=== PATIENT | female | born 1980 | race Caucasian/White ===

== ENCOUNTER → 2020-06-21 00:27 | Outpatient (CLI) | payer OTHER, SELFPAY ==
[2020-06-21 20:23] LABS: SARS-CoV-2 RNA PCR Negative
== END ==
PROVIDERS: PCP Family Medicine; Visit Provider Internal Medicine Gastroenterology
DX: Z01.812 Encounter for preprocedural laboratory examination (principal); Z20.822 Contact with and (suspected) exposure to COVID-19
CPT/HCPCS: C9803; U0003; U0005

== ENCOUNTER 2020-06-25 00:31 | Day surgery (SDC) | payer OTHER, SELFPAY ==
[2020-06-12 14:42] VITALS: BMI 27.7
[2020-06-25 06:21] VITALS: BP 115/60; PULSE 75; RESP 18; TEMP 36.2; O2SAT 100
[2020-06-25] MEDS: LACTATED RINGERS 1,000 ML 150 ML IV CONT (06:32)
--- NOTE | 2020-06-25 07:11 | WPDANESEPPF ---
Anes - Initial Pre Proc Eval Procedure: Operation Date: 06/25/20 07:30 Proposed Procedures p Colonoscopy - John Roberts MD Date/Time: 06/25/20 07:11 Surgeon: John Roberts MD Pre Op Diagnosis: Melena Patient Data Age: 40 Gender: F Height: 5 ft 6 in Weight: 76.8 kg Last Vital Signs Temp 97.1 F L 06/25/20 06:21 Pulse 75 06/25/20 06:21 Resp 18 06/25/20 06:21 BP 115/60 06/25/20 06:21 Pulse Ox 100 06/25/20 06:21 Allergies Allergy/AdvReac Type Severity Reaction Status Date / Time No Known Allergies Allergy Unverified 06/25/20 06:17 Home Medications Medication Instructions Recorded Confirmed Type cholecalciferol (vitamin D3) 50 50 mcg PO DAILY 08/30/19 06/12/20 History mcg (2,000 unit) capsule loratadine 10 mg tablet 10 mg PO DAILY 08/30/19 06/12/20 History sodium,potassium,mag sulfates 17.5 See Rx Instructions PO .COMPLEX 05/16/20 Rx gram-3.13 gram-1.6 gram oral soln #354 ml ibuprofen 200 mg PO Q6H PRN 06/12/20 06/12/20 History Patient hx anesthesia problems: none Family hx anesthesia problems: none PMFSH Past Medical History Medical History (Updated 05/09/20 @ 16:25 by Sonia Scruggs NP) Blood in stool Hyperlipidemia Diet controlled Irritable bowel syndrome with constipation Vitamin D deficiency Family History Family History (Updated 11/22/13 @ 07:13 by DOCTOR UNKNOWN) Father Asthma Grandparent Family history of type 2 diabetes mellitus Social History Social History Smoking status: Never smoker Alcohol intake: current Substance use: never Substance use type: does not use Living arrangements: with family Spiritual care concerns: No Anes - Eval Final PreProcedure Day of Procedure 06/25/20 07:11 Patient weight: overweight Heart: regular rate and rhythm Lungs: clear to auscultation Airway: Mallampati scale class II Neurological: alert and oriented Last oral intake: >/= 8 hours ASA classification: II Emergent: no Anesthetic plan: proceed Anesthesia type and monitoring: general GIVS and standard monitoring Informed Consent: The patient's anesthetic plan and its attendant risks and benefits were discussed with the patient/family/POA. Questions were solicited and answers provided to the satisfaction of the patient/family/POA.
--- NOTE | 2020-06-25 07:32 | PM.HPGS ---
History of Present Illness History of Present Illness Consent: Risks, benefits, and alternatives have been discussed and questions answered. Patient agrees to proceed with procedure. Chief complaint: Melena Narrative: Jeannette Steele is a 40 year old female with intermittent rectal bleeding Review of Systems Constitutional: Constitutional: Denies headache(s) and Denies weakness Eyes: Eyes: Denies blurry vision ENT: Reports Normal hearing present, Denies headache(s) and Denies neck pain Cardiovascular: Cardiovascular: Denies chest pain and Denies dyspnea Respiratory: Respiratory: Denies dyspnea Gastrointestinal: Gastrointestinal: Reports no additional gastrointestinal complaints Genitourinary: Genitourinary: Denies dysuria Musculoskeletal: Musculoskeletal: Denies neck pain Integumentary/Breasts: Skin/Breast: Denies dry skin Neurologic: Reports Normal hearing present, Denies headache(s) and Denies weakness Psychiatric: Psychiatric: Denies anxiety Endocrine: Endocrine: Denies change in body appearance Hematologic/Lymphatic: Hematologic/Lymphatic: Denies easy bleeding Allergic/Immunologic: Allergic/Immunologic: Denies urticaria PMFSH Past Medical History Medical History (Updated 05/09/20 @ 16:25 by Sonia Scruggs NP) Blood in stool Hyperlipidemia Diet controlled Irritable bowel syndrome with constipation Vitamin D deficiency Family History Family History (Updated 11/22/13 @ 07:13 by DOCTOR UNKNOWN) Father Asthma Grandparent Family history of type 2 diabetes mellitus Social History Social History Smoking status: Never smoker Alcohol intake: current Substance use: never Substance use type: does not use Living arrangements: with family Spiritual care concerns: No Meds Home Medications and Allergies Home Medications Medication Instructions Recorded Confirmed Type cholecalciferol (vitamin D3) 50 50 mcg PO DAILY 08/30/19 06/12/20 History mcg (2,000 unit) capsule loratadine 10 mg tablet 10 mg PO DAILY 08/30/19 06/12/20 History sodium,potassium,mag sulfates 17.5 See Rx Instructions PO .COMPLEX 05/16/20 Rx gram-3.13 gram-1.6 gram oral soln #354 ml ibuprofen 200 mg PO Q6H PRN 06/12/20 06/12/20 History Allergies Allergy/AdvReac Type Severity Reaction Status Date / Time No Known Allergies Allergy Unverified 06/25/20 06:17 Vital Signs Vital Signs - 24 hr 06/25/20 06:21 Temperature 97.1 F L Pulse Rate 75 Respiratory Rate 18 Blood Pressure 115/60 Pulse Oximetry 100 Exam Const: General: comfortable and no acute distress HENMT: General nose exam: Normal nares present Eyes: General: appearance normal, both eyes and all related structures Neck: Neck: no JVD Resp: Auscultation: clear to auscultation bilaterally Cardio: Rate: regular rate Rhythm: regular rhythm GI: Inspection: non-distended GI Palp: Yes Soft to palpation Skin: General skin exam: normal color Neuro: General: gait normal Speech: normal speech Extrem: General: normal to inspection Psych: Mental Status: mental status grossly normal Assessment and Plan Assessment and plan (1) Blood in stool: Code(s): K92.1 - Melena Status: Acute Assessment and Plan: proceed with colonoscopy
[2020-06-25 07:51] VITALS: BP 112/56; PULSE 69; RESP 16; O2SAT 100
[2020-06-25 08:01] VITALS: BP 108/71; PULSE 74; RESP 16; O2SAT 100
[2020-06-25 08:11] VITALS: BP 109/68; PULSE 69; RESP 18; O2SAT 100
== END 2020-06-25 08:32 | disposition home or self-care (01) ==
PROVIDERS: PCP Family Medicine; Visit Provider Internal Medicine Gastroenterology
PROC: 0DJD8ZZ Inspection of Lower Intestinal Tract, Via Natural or Artificial Opening Endoscopic (ICD-10-PCS; CPT 45378; principal; 2020-06-25 07:30)
DX: K92.1 Melena (principal); K64.8 Other hemorrhoids; E78.5 Hyperlipidemia, unspecified; K58.9 Irritable bowel syndrome, unspecified; E55.9 Vitamin D deficiency, unspecified
CPT/HCPCS: 45378; C9803; J2001; J2704; J7120; U0003; U0005

== ENCOUNTER 2021-01-07 10:01 | Outpatient (CLI) | payer OTHER, SELFPAY ==
--- NOTE | ~2021-01-07 | MM_ITS ---
EXAMINATION: MM screening juan BI w ruby HISTORY: Screening TECHNIQUE: Craniocaudal and mediolateral oblique 3-D tomosynthesis images were obtained and synthetic 2-D images were generated. CAD analysis was submitted and interpreted. COMPARISON: No prior mammogram is available for comparison at this institution. BREAST PARENCHYMAL COMPOSITION: There are scattered areas of fibroglandular density. FINDINGS: There are no suspicious masses, calcifications or architectural distortion in the right tiffany ast to suggest malignancy. There is asymmetric fibroglandular tissue in the left breast primarily jemma tered in the subareolar location. There are scattered calcifications. IMPRESSION: 1. Left breast asymmetries and calcifications. 2. Additional mammographic views and possible breast ultrasound are recommended. BI-RADS Category 0: Incomplete: Needs additional imaging evaluation. Reviewed, dictated and finalized at location A. IMPRESSION: 1. Left breast asymmetries and calcifications. 2. Additional mammographic views and possible breast ultrasound are recommended . BI-RADS Category 0: Incomplete: Needs additional imaging evaluation.
== END 2021-01-07 10:02 | disposition home or self-care (01) ==
LOC: ANHIMG 10:04
PROVIDERS: PCP Family Medicine; Visit Provider Nurse Practitioner
DX: Z12.31 Encounter for screening mammogram for malignant neoplasm of breast (principal); R92.8 Other abnormal and inconclusive findings on diagnostic imaging of breast
CPT/HCPCS: 77063; 77067

== ENCOUNTER 2021-01-30 13:04 | Outpatient (CLI) | payer OTHER, SELFPAY ==
--- NOTE | ~2021-01-30 | MMUS_ITS ---
EXAMINATION: MM diagnostic juan LT w ruby, US breast LT limited HISTORY: Follow-up left breast asymmetry and calcifications TECHNIQUE: Additional 3-D tomosynthesis images of the left breast were performed and synthetic 2-D im ages were generated. CAD analysis was submitted and interpreted. High resolution left breast ultrasou nd was performed. COMPARISON: 01/07/2021 BREAST PARENCHYMAL COMPOSITION: Breast composed of scattered areas of fibroglandular density FINDINGS: MAMMOGRAPHIC FINDINGS: . There are scattered punctate benign-appearing calcifications in the subareolar location. There are no discrete masses or architectural distortion. ULTRASOUND: Limited left breast ultrasound: Normal heterogeneous echotexture without focal solid or cystic mass. IMPRESSION: 1. No evidence for malignancy in the left breast. 2. Routine yearly screening mammogram and regular clinical breast examination are recommended. BI-RADS Category 2: Benign finding(s). Reviewed, dictated and finalized at location A. IMPRESSION: 1. No evidence for malignancy in the left breast. 2. Routine yearly screening mammogram and regular clinical breast examination a re recommended. BI-RADS Category 2: Benign finding(s).
== END 2021-01-30 13:05 | disposition home or self-care (01) ==
LOC: ANHIMG 13:05
PROVIDERS: PCP Family Medicine; Visit Provider Nurse Practitioner
DX: R92.8 Other abnormal and inconclusive findings on diagnostic imaging of breast (principal)
CPT/HCPCS: 76642; 77061; 77065; G0279

== ENCOUNTER 2021-04-27 17:10 | Emergency (ER) | payer OTHER, SELFPAY ==
[2021-04-27 17:17] VITALS: BP 124/50; PULSE 76; RESP 16; TEMP 36.6; O2SAT 100
== END 2021-04-27 17:17 | disposition left against medical advice (07) ==
PROVIDERS: Emergency Provider Nurse Practitioner; PCP Nurse Practitioner Family
DX: Z53.21 Procedure and treatment not carried out due to patient leaving prior to being seen by health care provider (principal)
CPT/HCPCS: 99199

== ENCOUNTER → 2021-04-27 17:23 | Outpatient (CLI) | payer OTHER, SELFPAY ==
--- NOTE | ~2021-04-27 | XR_ITS ---
EXAMINATION: XR lumbar spine 2-3V EXAM DATE: 04/27/2021 17:33 INDICATION: M54.42 - Lumbago with sciatica, left side TECHNIQUE: Lumber spine frontal, lateral, lateral L5-S1 projections for interpretation. There is no prior study for comparison. FINDINGS: There is minimal disc disease L4-5 and L5-S1. There is mild mid and lower lumbar facet art hropathy. No spondylolysis. The vertebral bodies are aligned in the AP dimension. Sacrum, sacroiliac joints, sacral arcuate lines are intact. Paraspinal soft tissue is unremarkable. IMPRESSION: Mild lumbar spondylosis. Reviewed, dictated and finalized at location [facility] [employer] IMPRESSION: Mild lumbar spondylosis.
== END ==
PROVIDERS: PCP Nurse Practitioner Family; Visit Provider Nurse Practitioner Family
DX: M54.42 Lumbago with sciatica, left side (principal); M47.896 Other spondylosis, lumbar region
CPT/HCPCS: 72100

== ENCOUNTER 2021-09-26 14:17 | Emergency (ER) | payer OTHER, SELFPAY ==
[2021-09-26 14:26] VITALS: BP 117/72; PULSE 75; RESP 16; TEMP 36.7; O2SAT 100
--- NOTE | 2021-09-26 15:07 | ED.URI ---
HPI - URI/Sore Throat General Chief Complaint: Upper Respiratory Infection Stated Complaint: SINUS PRESSURE/COUGH/DRAINAGE Time Seen by Provider: 09/26/21 14:25 Source: patient Mode of arrival: ambulatory Limitations: no limitations History of Present Illness HPI Narrative: Patient presents today complaining of a 1 week history of cough, congestion, postnasal drip, fatigue, facial pressure, headache. Today, her nasal secretions and postnasal drainage have turned purulent from clear and states they taste bad. Denies shortness of breath or fever. She has been taking Sudafed, DayQuil, and NyQuil with mild relief. Related Data Allergies Allergy/AdvReac Type Severity Reaction Status Date / Time No Known Allergies Allergy Verified 09/26/21 14:25 Review of Systems Review of Systems: CONSTITUTIONAL: Denies body aches, fever, chills, or sweats.+ Fatigue EYES: Denies visual changes, redness, or discharge. ENT: Denies rhinorrhea, sore throat, or otalgia.+ Congestion, postnasal drip, sinus pressure CARDIOVASCULAR: Denies chest pain, palpitations, or edema. RESPIRATORY: Denies dyspnea.+ Cough GASTROINTESTINAL: Denies abdominal pain, nausea, vomiting, or diarrhea. GENITOURINARY: Denies dysuria or hematuria. SKIN: Denies rash, itching, or wounds. MUSCULOSKELETAL: Denies back pain, joint pain, or myalgia. NEUROLOGIC: Denies numbness, tingling, or weakness.+ Headache PSYCH: Denies depression or anxiety. [facility] Past Medical History Medical History Hyperlipidemia Diet controlled Irritable bowel syndrome with constipation Vitamin D deficiency Family History Family History Father Asthma Grandparent Family history of type 2 diabetes mellitus Mother Acute Crohn's disease Crohn's disease Social History Social History Social History: , three school-age children. 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 Smoking status: Never smoker Alcohol intake: current Substance use: never Substance use type: does not use Spiritual care concerns: No Comments At time of signature, I have reviewed and agree with nursing past medical, surgical, social and family history unless otherwise noted. Please see nursing chart for further information. There is no relevant family history pertinent to the presenting complaint Exam Narrative: GENERAL: Well-appearing, well-nourished, and in no acute distress. HEAD: Normocephalic, atraumatic. EYES: EOMI. No redness or drainage. Conjunctivae normal. ENT: Mucous membranes pink and moist. Nares congested. Bilateral swollen nasal turbinates. Frontal and right maxillary sinus tenderness. No rhinorrhea. TMs normal bilaterally. Throat normal. Uvula midline. NECK: Normal AROM. Supple. No lymphadenopathy. CHEST: No respiratory distress. Clear to auscultation. HEART: Regular rate and rhythm. No murmur appreciated. Normal peripheral pulses. EXTREMITIES: Normal range of motion. No edema. SKIN: Warm, dry, no rash. Capillary refill normal. Normal skin turgor. NEURO: No focal deficits. Alert and oriented x3. Gait steady. PSYCH: Normal affect. No signs of depression or anxiety. Course Course Level of Care: Express Care Visit Vital Signs Vital signs: Vital Signs Temperature 98.1 F 09/26/21 14:26 Pulse Rate 75 09/26/21 14:26 Respiratory Rate 16 09/26/21 14:26 Blood Pressure 117/72 09/26/21 14:26 Pulse Oximetry 100 09/26/21 14:26 Oxygen Delivery Room Air 09/26/21 14:26 Temperature 98.1 F 09/26/21 14:26 Pulse Rate 75 09/26/21 14:26 Respiratory Rate 16 09/26/21 14:26 Blood Pressure 117/72 09/26/21 14:26 Pulse Oximetry 100 09/26/21 14:26 Oxygen Delivery Room Air 09/26/21 14:26 Reviewed. Pt has been instructed to follow up with his PCP regarding his
== END 2021-09-26 14:39 | disposition home or self-care (01) ==
PROVIDERS: Emergency Provider Nurse Practitioner; PCP Nurse Practitioner Family
DX: J32.9 Chronic sinusitis, unspecified (principal); J40 Bronchitis, not specified as acute or chronic; E78.5 Hyperlipidemia, unspecified
CPT/HCPCS: 99213; G0463